=== PATIENT | male | born 1950 | race Asian ===

== ENCOUNTER 2021-07-08 10:57 | Outpatient (CLI) | payer MEDICARE, OTHER ==
--- NOTE | 2021-07-08 12:45 | CARDIAC PROCEDURE NOTE ---
Stress Test Report Service Date: 07/08/21 Service Time: 12:00 Ordering Provider: Liborio Marcum MD Indication for Test: Assess chest pain. Significant Medical History: -Orlin reports history of multiple cardiac risk factors, as elaborated below. Earlier this spring there was an attempt to modify his blood pressure and lipid- lowering medications, which resulted in his developing a rash on his feet>hands, in association with a "heartburn" sensation; these symptoms abated with discontinuation of the new meds and he denies experiencing the same kind of epigastric discomfort since. 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 He is able to perform routine household tasks, such as taking out the trash and mowing his lawn. He feels that his tolerance of these activities is stable. Although he initially denied having any exertional chest discomfort, during the test he identified central substernal chest pressure, that he recalls having with signi ficant exertion, that always dissipates quickly with rest. This is of a different nature than what he experienced with the adverse drug reaction earlier this spring. He is not aware of experiencing profuse diaphoresis, nausea, lightheadedness or marked dyspnea with his exertional chest pressure. Cardiac Risk Factors: He has been treated for hypertension for >20 yrs, then started pravastatin for dyslipidemia; about 3 years ago he was initiated on metformin for diabetes. He smoked cigarettes for many years but quit in 1988. He is not aware of close family members having ASCVD events. Type of Stress Test: ETT with Myocardial Perfusion Imaging Procedure: -Exercise Treadmill Test- After signing informed consent, the patient underwent resting SPECT imaging; he then performed treadmill exercise using a modified Hernán protocol. The patient exercised for 11 minutes 44 seconds and achieved a peak heart rate of 121 (79 percent predicted maximum heart rate for age), and an estimated workload of 7.1 METS. The test was terminated due to development of his typical exertional chest pressure, that occurred before achieving target HR. Resting heart rate: 94 Peak heart rate: 121 Abnormal response to exercise. Resting BP: 204/96 Peak BP: 203/92 Hypertensive at rest (off carvedilol for 48 hours) with abnormal failure to augment BP further in response to exercise. Rhythm during exercise: Sinus rhythm with a single isolated PVC. Symptoms: Had onset of chest pressure at 8 minutes, rated mild in severity, with rapid resolution early in recovery. EKG at rest showed normal sinus rhythm with normal QRS and T wave morphologies throughout, but with abnormal upsloping ST depression of about 0.5 mm in multiple inferior and anterolateral leads. EKG at peak stress showed incremental horizontal ST depression reaching 2.0 mm in the anterolateral leads. In Recovery heart rate and BP slowly decreased; there was progression of his repolarizaiton abnormality with development of downsloping ST segments with T- wave inversion in the anterolateral leads. Nuclear imaging performed at rest and with stress and will be reported separately. Karl Coronado MD, was present throughout this treadmill stress test and supervised it in its entirety. Summary: 1) Exercise tolerance likely significantly reduced for age and gender as evidenced by attainment of only 7.1 METS. No IRENE available for modified Hernán protocol. 2) Abnormal resting EKG. 3) Adequate level of exercise was not achieved on this treadmill stress test, as exercise was terminated with symptoms at 79% predicted maximal heart rate. If nuclear images are negative for ischemia, it may be due to inadequate heart rate response. Consider re-evaluation and stress testing using Pharmacologic stress with Nuclear or Echo imaging. 4) Elevated resting BP, with abnormal failure to augment in response to exercise. 5) There was progressive horizontal ST depression in late stages of exercise with subsequent ST downsloping and associated T-wave inversion in recovery, changes likely meeting EKG criteria for ischemia, though specificity of response is decreased due to resting ST abnormalities. 6) Nuclear image interpretation: SPECT analysis reveals no evidence of prior infarct with a zone of inducible inferior ischemia; gated analysis reveals normal stress associated left ventricular ejection fraction of 69%. See separate report for more detail. CONCLUSIONS: 1) Positive/abnormal treadmill stress MPI study by symptoms, ischemic EKG evolution and myocardial perfusion imaging, indicative of inducible inferior wall ischemia. 2) Abnormal results communicated to referring provider on 07/08/21.
--- NOTE | 2021-07-08 15:33 | Nuclear Medicine Report ---
PROCEDURE: Rest and exercise myocardial perfusion SPECT with gated imaging and ejection fraction INDICATIONS: CHEST PAIN RADIOPHARMACEUTICAL: 9.2 mCi Tc-99m Myoview IV at rest and 31.2 mCi Tc-99m Myoview IV at peak exerci se. [id number] was performed. TECHNIQUE: Radiopharmaceutical was injected at peak stress test, and also at rest. SPECT images wer e obtained. SPECT myocardial perfusion images were displayed in short axis, horizontal long axis, an d vertical long axis views. Gated images were reviewed using Auto[employer] software. COMPARISON: None available. FINDINGS: Raw data: There is good myocardial labeling by radiotracer. No significant motion artifacts. Lung- to-heart ratio is 0.38 (normal is less than 0.46 for tetrafosmin tracer). Left ventricle function: Gated images demonstrate normal left ventricle wall thickening. No segment al wall motion abnormality. No transient ischemic dilation; TID is 0.84 (normal less than 1.30). Th e left ventricle resting end-diastolic volume is 97 mL. Left ventricle stress ejection fraction is 6 9%; normal values are above 45%. Myocardial perfusion: There is a moderate size, moderately intense reversible perfusion defect invol ving the inferior wall. Stress phase perfusion defect does not completely normalize in the prone posi tion. There is otherwise normal distribution of radiotracer in the left ventricular myocardium during both rest and stress phases of the study. No fixed perfusion defects identified. IMPRESSION: 1. Abnormal study demonstrating moderate-sized area of reversible ischemia involving the inferior wal l. 2. Normal left ventricular function with no segmental wall motion abnormalities and normal stress LVE F of 69%. PQRS ATTESTATIONS: Measure 322 - Is this imaging test primarily performed on a low-risk surgery patient for preoperative evaluation within 30 days preceding their low-risk non-cardiac surgery? Low-risk surgery is defined as cardiac or myocardial infarction less than 1%, including (but not limited to) endoscopic pr ocedures, superficial procedures, cataract surgery, and excisional breast surgery: Answer: No Measure 323 - Is this imaging test performed primarily for the monitoring of an asymptomatic patient who had percutaneous coronary intervention on the visit date or within 2 years of the visit date? An swer: No Measure 324 - Is this imaging test performed primarily for the initial detection and risk assessment on an asymptomatic, low coronary heart disease patient? Low CHD risk definition = clinicians should consider the maximum number of available patient factors used to estimate risk based on [place] (A TP III criteria), typically age, gender, diabetes, smoking status, and use of blood pressure medicati on, and integrate age appropriate estimates for missing elements, such as LDL or standard blood press ure. Answer: No Reviewed by: Jenise Castro MD, PhD on 07/08/2021 3:32 PM PDT Approved by: Jenise Castro MD, PhD on 07/08/2021 3:32 PM PDT Station ID: [id number]
== END 2021-07-08 10:58 | disposition home or self-care (01) ==
LOC: DI 10:57
PROVIDERS: ATTEND Internal Medicine Cardiovascular Disease
DX: R07.9 Chest pain, unspecified (principal); I25.9 Chronic ischemic heart disease, unspecified
CPT/HCPCS: 78452; 93017; A9500

== ENCOUNTER 2022-11-17 16:31 | Emergency (ER) | payer MEDICARE, OTHER ==
[2022-11-17] MEDS ORDERED: MECLIZINE 12.5 MG TABLET PO STA (16:50)
--- NOTE | 2022-11-17 16:53 | ED Physician Documentation ---
History of Present Illness - Stated complaint Stated Complaint: V/DIZZY/N - Chief complaint Chief Complaint: Neuro - Additonal information Additional information: History obtained by patient. Reliable historian. 72-year-old male presents to the emergency department for evaluation of acute dizziness. Reported that he Began having humming or tinnitus in both of his ears last night. This morning when he woke up he found that the room was spinning. He finds that the room spins for about 10 to 15 seconds especially when he changes positions such as going from sitting to standing or turning his head to the right. He has had some nausea no vomiting. Patient denies any previous history of vertigo. He has no slurred speech, facial droop arm or leg weakness. Past medical history most significant for hypertension and diabetes. He is denying chest pain or shortness of air. Reports compliance with his medications. Blood sugar was 177 at home prior to arrival Review of Systems Constitutional: reports: Reviewed and negative Eyes: denies: Loss of vision, Decreased vision, Photophobia Ears: reports: Tinnitus/ringing Cardiac: reports: Reviewed and negative Respiratory: reports: Reviewed and negative GI: reports: Nausea. denies: Vomiting : reports: Reviewed and negative Skin: reports: Reviewed and negative Musculoskeletal: reports: Reviewed and negative Neurologic: reports: Other (dizziness) PD PAST MEDICAL HISTORY - Present Medications Home Medications: Ambulatory Orders Medication Instructions Recorded Confirmed Amlodipine Besylate [Norvasc] 10 mg PO DAILY 11/17/22 11/17/22 Aspirin EC [Ecotrin] 81 mg PO DAILY 11/17/22 11/17/22 Atorvastatin Calcium [Lipitor] 80 mg PO HS 11/17/22 11/17/22 Doxazosin Mesylate [Cardura] 2 mg PO DAILY 11/17/22 11/17/22 Empagliflozin [Jardiance] 10 mg ORAL DAILY 11/17/22 11/17/22 Losartan Potassium [Cozaar] 100 mg PO DAILY 11/17/22 11/17/22 Meclizine [Antivert] 25 mg PO TID PRN #30 tablet 11/17/22 Metformin HCl [Metformin ER 500 mg PO DAILY 11/17/22 11/17/22 Gastric] Metoprolol Succinate [Toprol Xl] 25 mg PO DAILY 11/17/22 11/17/22 - Allergies Allergies/Adverse Reactions: Allergies Allergy/AdvReac Type Severity Reaction Status Date / Time bee venom protein (honey bee) Allergy Anaphylaxis Verified 11/17/22 16:35 hydrochlorothiazide Allergy Rash Verified 11/17/22 16:35 PD ED PE NORMAL - General General: Alert and oriented X 3, No acute distress, Well developed/nourished - HEENT HEENT: Atraumatic, Moist mucous membranes - Neck Neck: Supple, no meningeal sign, No adenopathy - Cardiac Cardiac: RRR, No murmur, Strong equal pulses - Respiratory Respiratory: No respiratory distress, Clear bilaterally - Abdomen Abdomen: Normal bowel sounds, Soft, Non tender - Derm Derm: Normal color, Warm and dry, No rash - Extremities Extremities: No deformity, No tenderness to palpate, Normal ROM s pain - Neuro Neuro: Alert and oriented X 3, customer relations consultant 2-12 intact, No motor deficit, No sensory deficit, Normal speech, Other (NIHSS of 0. Normal cerebellar exam. Normal finger-nose. Sensation of dizziness is elicited when patient turns his head to the right. Abates after about 10 to 15 seconds. No nystagmus noted. Mild truncal ataxia when sitting upright) Eye Opening: Spontaneous Motor: Obeys Commands Verbal: Confused GCS Score: 14 Results - Vitals Vitals: Vital Signs - 24 hr 11/17/22 16:37 Temperature 36.6 C Heart Rate 86 Respiratory 18 Rate Blood Pressure 163/72 H O2 Saturation 97 Oxygen O2 Source Room air - EKG (time done) 1649 Rate: Rate (enter#) (87) Rhythm: NSR [place]: Normal Intervals: Normal [place] QRS: Normal Ischemia: Non specific changes Compare to prior EKG: Old EKG unavailable Computer interpretation: Agree with computer - Labs Labs: Laboratory Tests 11/17/22 11/17/22 16:52 16:52 WBC 10.0 RBC 5.40 Hgb 15.9 Hct 47.8 MCV 88.5 MCH 29.4 MCHC 33.3 RDW 13.9 Plt Count 245 MPV 9.0 Neut # (Auto) 8.0 H Lymph # (Auto) 1.6 [place] # (Auto) 0.4 Eos # (Auto) 0.0 Baso # (Auto) 0.1 Absolute Nucleated RBC 0.00 Nucleated RBC % 0.0 Sodium 137 Potassium 3.8 Chloride 103 Carbon Dioxide 20 L Anion Gap 14.0 H BUN 18 Creatinine 0.9 Estimated GFR (MDRD) 83 L Glucose 163 H Calcium 9.4 Total Bilirubin 1.1 H AST 29 ALT 38 Alkaline Phosphatase 52 Total Protein 8.5 H Albumin 4.5 Globulin 4.0 Albumin/Globulin Ratio 1.1 Lipase 32 - Rads (name of study) Ct head Radiology: Final report received (No CT evidence of acute intracranial bleed, midline shift or mass effect. 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 Reports that yesterday evening he began having a ringing in both of his ears. When he woke up this morning he had dizziness especially when he turned his head. Symptoms were worse on the right. He states that the symptoms would go away after about 10 to 15 seconds but continuing to move exacerbated. On presentation to the emergency department he is alert and well-appearing. Was unable to elicit any nystagmus though he did endorse the vertigo When we turn the head to the right. When he sat upright in bed he had mild truncal ataxia, but self corrected Differentials considered include peripheral vertigo, versus Mnire's vs cerebellar infarction. History is most suggestive of peripheral etiology. 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 I suspect that this gentleman likely has some chronic balance problems associated with this. He will need an MRI as an outpatient. Here in the emergency department the patient was able to ambulate with a walker and does have a walker at home. 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 With the CT findings I have notified him and his that he must always use the walker when ambulating. Given the degree of encephalomalacia of these CT findings are not new and I suspect that he chronically has some gait disturbance as well as feeling of disequilibrium. I did obtain a CBC and electrolytes. No acute worrisome findings are seen per my interpretation. Here in the emergency department the patient was medicated with 12.5 mg of meclizine orally as well as some IV Zofran. Meclizine will be prescribed on discharge. symptoms mildly improved Patient is scheduled to have a Zoom visit with his primary care provider tomorrow. He is advised to discuss this ED visit closely as I believe he would benefit from an outpatient referral to neurology as well as an MRI of his brain. Emergent return precautions were discussed Departure - Departure Disposition: 01 Home, Self Care Clinical Impression: Vertigo, Cerebellar infarction Cerebrovascular accident (CVA) Qualifiers: CVA mechanism: other Qualified Code(s): I63.89 - Other cerebral infarction Condition: Stable Record reviewed to determine appropriate education?: Yes Prescriptions: Meclizine [Antivert] 25 mg PO TID PRN #30 tablet PRN Reason: Vertigo Comments: Charles you came to the emergency department because you have been having some dizziness today and difficulty with walking. At the bedside you did not have any obvious focal deficits though you complained of dizziness when you turn your head to the right. The CT of your head shows that you have had an old infarction or stroke to the left cerebellum. You have also developed some encephalomalacia. This is a shrinking of the brain in this area with cerebral spinal fluid developing around it. This is not a new finding. You should continue to take your usual daily medications including your aspirin. It is not clear to us when you had the stroke but it is one of the likely causes of your dizziness and being off balance. When you speak to your primary care doctor tomorrow they should order an outpatient MRI. You would also benefit from being referred to a neurologist in follow-up. In order to help with some of the dizziness I [place]cl[place] You can take this 3 times a day as needed Return to the ER for worsening symptoms
[2022-11-17 17:00] LABS: BASOPHILS # (AUTO) 0.1 10^3/uL (0.0-0.1); BASOPHILS % (AUTO) 0.7 %; EOSINOPHILS % (AUTO) 0.1 %; HCT - HEMATOCRIT 47.8 % (42.0-52.0); HGB - HEMOGLOBIN 15.9 g/dL (14.0-18.0); LYMPHOCYTES # (AUTO) 1.6 10^3/uL (1.5-3.5); LYMPHOCYTES % (AUTO) 15.6 %; MEAN CORPUSCULAR HEMOGLOBIN 29.4 pg (27.0-31.0); MEAN CORPUSCULAR HGB CONC 33.3 g/dL (32.0-36.0); MEAN CORPUSCULAR VOLUME 88.5 fL (80.0-94.0); MONOCYTES # (AUTO) 0.4 10^3/uL (0.0-1.0); NEUTROPHILS % (AUTO) 79.2 %; PLT - PLATELET COUNT 245 10^3/uL (130-450); RED CELL DISTRIBUTION WIDTH 13.9 % (12.0-15.0)
[2022-11-17 17:10] LABS: ALBUMIN 4.5 g/dL (3.2-5.5); ALBUMIN/GLOBULIN RATIO 1.1 (1.0-2.2); BILIRUBIN,TOTAL 1.1 mg/dL (0.2-1.0); CALCIUM 9.4 mg/dL (8.5-10.3); CREATININE 0.9 mg/dL (0.6-1.2); POTASSIUM 3.8 mmol/L (3.5-5.0); TOTAL PROTEIN 8.5 g/dL (6.7-8.2)
[2022-11-17] MEDS ORDERED: ONDANSETRON 4 MG/2 ML VIAL IVP STA (17:29)
--- NOTE | 2022-11-17 18:04 | CT Report ---
PROCEDURE: HEAD WO INDICATIONS: vertigo; TECHNIQUE: Noncontrast 4.5 mm thick angled axial sections acquired from the foramen magnum to the vertex. For r adiation dose reduction, the following was used: automated exposure control, adjustment of mA and/or kV according to patient size. COMPARISON: None FINDINGS: Image quality: Excellent. CSF spaces: Basal cisterns are patent. No extra-axial fluid collections. The ventricles are symmet nathaly in size and shape. Brain: No intracranial bleeds or masses. Suggestion of old infarction involving left cerebellum is seen with encephalomalacia.. There is cerebral volume loss for age, with resultant ventricular and gomes lcal prominence. There are periventricular and deep white matter chronic small vessel ischemic gtz es. There is intracranial internal carotid artery atherosclerosis. Skull and face: Calvarium and visualized facial bones appear intact, without suspicious lesions. Sinuses: Visualized sinuses and mastoids are clear. IMPRESSION: 1. No CT evidence of acute intracranial bleed, midline shift or mass effect. 2. No definite CT evidence of acute infarction. 3. Age-related volume loss and suggestion of old infarction involving left cerebellum with encephalom alacia. Reviewed by: Gallo Warner MD on 11/17/2022 6:02 PM PST Approved by: Gallo Warner MD on 11/17/2022 6:02 PM PST Station ID: [id number]
[2022-11-17 18:47] VITALS: BP 156/80
[2022-11-17] MEDS ORDERED: predniSONE 20 MG TABLET PO STA (18:52)
== END 2022-11-17 19:12 | disposition home or self-care (01) ==
LOC: ED 16:31
DX: I63.89 Other cerebral infarction (principal); R42 Dizziness and giddiness; I10 Essential (primary) hypertension; E11.9 Type 2 diabetes mellitus without complications; Z79.82 Long term (current) use of aspirin; Z79.84 Long term (current) use of oral hypoglycemic drugs; Z79.899 Other long term (current) drug therapy
CPT/HCPCS: 36415; 70450; 80053; 83690; 85025; 93005; 96374; 99284; A9270